=== PATIENT | male | born 1975 | race Caucasian/White ===

== ENCOUNTER 2022-12-13 16:34 | Emergency (ER) | payer OTHER ==
[~2022-12-13] VITALS: Ht 162.6 cm; Wt 58.1 kg
[~2022-12-13 16:34] MED LIST: BENTYL10 MG PO; CIPRO500 MG PO; CLINDAMYCIN300 MG PO; PERCOCET 325 MG1 TA5 PO; ULTRAM50 MG PO
[2022-12-13 16:44] VITALS: BP 124/76
== END 2022-12-13 17:52 | disposition home or self-care (01) ==
LOC: ED 16:34
DX: T15.02XA Foreign body in cornea, left eye, initial encounter (principal); Z87.442 Personal history of urinary calculi; F17.200 Nicotine dependence, unspecified, uncomplicated; X58.XXXA Exposure to other specified factors, initial encounter; Y93.89 Activity, other specified; Y92.89 Other specified places as the place of occurrence of the external cause; Y99.8 Other external cause status